=== PATIENT | female | born 1970 | race Caucasian/White ===

== ENCOUNTER 2018-06-23 10:28 | Emergency (ER) | payer OTHER ==
[~2018-06-23] VITALS: Ht 162.6 cm; Wt 76.0 kg
[2018-06-23 10:32] VITALS: Ht 162.6 cm; Wt 76.0 kg
--- NOTE | 2018-06-23 11:32 | ERD ---
ER Documentation Chief Complaint Chief Complaint pt is bib self with c/o chest /left arm pain for a few hrs HPI 47-year-old female with no significant prior medical history presents to the ED complaining of 1 day history of intermittent, unprovoked palpitations with vague left upper chest pain that radiates to her axilla. Denies shortness of breath, nausea, vomiting or diaphoresis. Patient admits to having similar pains inter mittently for many years. Denies abdominal pain or back pain. No leg pain or swelling. No relieving or exacerbating factors. No fevers or chills. ROS All systems reviewed and are negative except as per history of present illness. Medications Home Meds No Active Prescriptions or Reported Meds Allergies Allergies: Coded Allergies: No Known Allergy (Unverified , 06/23/18) PMhx/Soc History of Surgery: Yes (TONSILLECTOMY) Anesthesia Reaction: No Hx Neurological Disorder: No Hx Respiratory Disorders: No Hx Cardiac Disorders: No Hx Psychiatric Problems: No Hx Miscellaneous Medical Probl: No Hx Alcohol Use: No Hx Substance Use: No Hx Tobacco Use: No FmHx Father: PA at the age of 80. Physical Exam Vitals Vital Signs Date Temp Pulse Resp B/P (MAP) Pulse Ox O2 O2 Flow FiO2 Time Delivery Rate 06/23/18 56 14 120/74 100 Room Air 12:25 (89) 06/23/18 98.7 68 18 161/69 100 10:32 (99) Physical Exam Const: No acute distress Head: Atraumatic Eyes: Normal Conjunctiva ENT: Normal External Ears, Nose and Mouth. Neck: Full range of motion. No JVD. No meningismus. Resp: Clear to auscultation bilaterally Cardio: Regular rate and rhythm, no murmurs Abd: Soft, non tender, non distended. Normal bowel sounds Chest wall: No tenderness, ecchymosis or bruising. Skin: No petechiae or rashes Back: No midline or flank tenderness Ext: No cyanosis, or edema Neur: Awake and alert Psych: Anxious but not depressed Result Diagram: 06/23/18 1126 06/23/18 1126 Results 24 hrs Laboratory Tests Test 06/23/18 11:26 06/23/18 13:07 White Blood Count 5.4 10^3/ul Red Blood Count 5.12 10^6/ul Hemoglobin 14.1 g/dl Hematocrit 42.4 % Mean Corpuscular Volume 82.8 fl Mean Corpuscular Hemoglobin 27.5 pg Mean Corpuscular Hemoglobin Concent 33.3 g/dl Red Cell Distribution Width 13.5 % Platelet Count 209 10^3/UL Mean Platelet Volume 10.7 fl Immature Granulocytes % 0.200 % Neutrophils % 60.6 % Lymphocytes % 29.2 % Monocytes % 8.3 % Eosinophils % 1.3 % Basophils % 0.4 % Nucleated Red Blood Cells % 0.0 /100WBC Immature Granulocytes # 0.010 10^3/ul Neutrophils # 3.3 10^3/ul Lymphocytes # 1.6 10^3/ul Monocytes # 0.5 10^3/ul Eosinophils # 0.1 10^3/ul Basophils # 0.0 10^3/ul Nucleated Red Blood Cells # 0.0 10^3/ul D-Dimer 306.73 ng/ml D-Dimer Comment Sodium Level 141 mmol/L Potassium Level 4.1 mmol/L Chloride Level 105 mmol/L Carbon Dioxide Level 30 mmol/L Anion Gap 6 Blood Urea Nitrogen 13 mg/dl Creatinine 0.68 mg/dl Est Glomerular Filtrat Rate mL/min > 60 mL/min Glucose Level 91 mg/dl Calcium Level 9.4 mg/dl Troponin I < 0.012 ng/ml Thyroid Stimulating Hormone (TSH) 3.290 MIU/L POC Beta HCG, Qualitative NEGATIVE Current Medications Medications Dose Sig/Delia Start Time Status Last (Trade) Ordered Route PRN Stop Time Admin Dose Reason Admin Aspirin 300 mg ONCE STAT 06/23/18 Cancel (Aspirin) MD 11:37 06/23/18 11:38 Aspirin 325 mg ONCE STAT 06/23/18 DC 06/23/18 (Aspirin) PO 12:25 12:38 06/23/18 12:26 Procedures/MDM DOCUMENTS REVIEWED: ED nurse, prior ED LAB INTERPRETATION: CBC negative for leukocytosis, anemia or thrombocytopenia. EKG: Time: 10:34. Sinus rhythm. Ventricular rate 60. Normal MD and QRS. Incomplete right bundle branch block. Incomplete right bundle branch block. No acute ST segment elevation or depression. No ectopy. My Interpretation EKG: Time: 12:37. Sinus rhythm. Ventricular rate 54. Normal MD and QRS. Incomplete right bundle branch block. Incomplete right bundle branch block. No acute ST segment elevation or depression. No ectopy. My Interpretation IMAGING: Chest AP portable. Cardiac silhouette is normal. The costophrenic angles are clear. No effusions or infiltrates. No abnormalities of the bony thorax. My interpretation. MEDICAL DECISION MAKIN-year-old female with no significant prior medical history presents to the ED complaining of 1 day history of intermittent, unprovoked palpitations with vague left upper chest pain that radiates to her axilla. The patient presents with chest pain and I considered pulmonary embolism, aortic dissection, pneumothorax among other diagnoses. Evaluation for acute coronary syndrome was performed. The HEART score was utilized for risk stratification and found to be = 1. Repeat EKG and troponin @ 3 hours were unchanged. Based on this evaluation the patients risk of major adverse cardiac events is <1%. Shared decision making occurred with patient and the decision has been made to discharge the patient for outpatient evaluation and functional study within 72 hours. Stable for discharge with precautionary instructions and outpatient follow-up as counseled. Observation Note: Time: 3 hours Family Hx: No Hypertension Evaluation: Multiple exams showed improving symptoms and no evidence of acute coronary syndrome Counseled patient regarding diagnostic workup, diagnosis and need for followup. Understands to return to ED if symptoms recur, worsen or any other concerns. Departure Diagnosis: Primary Impression: Chest pain with low risk for cardiac etiology Condition: Stable ALIVIA BATEMAN MD June 23, 2018 11:32
[2018-06-23] MEDS ORDERED: ASPIRIN 300 MG SUPP PR STA (11:37)
[2018-06-23] MEDS ORDERED: ASPIRIN 325 MG TAB PO STA (12:25)
[2018-06-23 15:50] VITALS: BP 137/68; PULSE 59; RESP 17
== END 2018-06-23 15:50 | disposition home or self-care (01) ==
LOC: E/R 10:28
DX: R07.9 Chest pain, unspecified (principal)
CPT/HCPCS: 36415; 71045; 80048; 81025; 84443; 84484; 85025; 85378; 93005